=== PATIENT | male | born 1960 | race African-American/Black ===

== ENCOUNTER → 2016-06-24 | Outpatient (CLI) | payer BC ==
[~2016-06-24] MED LIST: AMLO2.5T PO; ASPEC325 PO; ASPI81TA28 PO; CLB200 PO; DOCU-94 PO; DOCU100C31 PO; DVN80 PO; GLUC1CAP33 PO; HYDR-5688 PO; LACT1CAP6 PO; MULT-506 PO; OLME40TA30 PO; OMEG10007 PO; OXYB5TAB74 PO; OXYC7.5T65 PO; POTA8CAP6 PO; SULF800T23 PO
[2016-06-24 09:33] LABS: BASO % 0.6 %; BASO ABS # 0.03 K/uL (0-0.2); COMPLETE YES; EOS % 2.8 %; HEMATOCRIT 45.9 % (42-52); IG% 0.2 %; LYMPH % 30.4 %; LYMPH ABS # 1.65 K/uL (1.2-3.4); MEAN CELL VOLUME 89.3 fL (80-100); MEAN CORPUSCULAR HEMOGLOBIN 29.8 pg (25-34); MEAN CORPUSCULAR HGB CONC 33.3 g/dl (32-36); MEAN PLATELET VOLUME 9.7 fL (7.4-10.4); MONO % 10.5 %; NEUT % 55.5 %; PLATELET COUNT 304 K/uL (130-400); RED BLOOD COUNT 5.14 M/uL (4.7-6.1); WHITE BLOOD COUNT 5.43 K/uL (4.8-10.8)
[2016-06-24 09:42] LABS: ALT/SGPT 29 U/L (12-78); AST/SGOT 17 U/L (15-37); BLOOD UREA NITROGEN 12 mg/dl (7-18); CALCIUM 8.7 mg/dl (8.5-10.1); CARBON DIOXIDE 29 mmol/L (21-32); CHLORIDE 108 mmol/L (98-107); GLUCOSE 107 mg/dl (70-99); POTASSIUM 3.9 mmol/L (3.5-5.1); SODIUM 145 mmol/L (136-145)
[2016-06-24 09:44] LABS: ESTIMATED AVERAGE GLUCOSE 126 mg/dl; HA1C FLAG Normal (Normal)
[2016-06-24 09:54] LABS: ALB/GLOB RATIO 1.1 (0.9-2); ALKALINE PHOSPHATASE 89 U/L (45-117); CHOLESTEROL 166 mg/dl (0-200); CHOLESTEROL/HDL RATIO 2.5; HDL CHOLESTEROL 66 mg/dl; LDL CHOLESTEROL CALCULATED 90 mg/dl; THYROID STIMULATING HORMONE 0.667 uIu/ml (0.300-4.500); TRIGLYCERIDES 52 mg/dl (0-150); VERY LOW DENSITY LIPOPROT CALC 10 mg/dl
== END | disposition home or self-care (01) ==
LOC: C.LAB 07:46
PROVIDERS: ATTEND Internal Medicine
DX: R51 Headache (principal); R73.01 Impaired fasting glucose

== ENCOUNTER → 2016-09-30 | Outpatient (CLI) | payer BC ==
[~2016-09-30] MED LIST changes: +DTR/5 PO; -OXYB5TAB74 PO
== END | disposition home or self-care (01) ==
LOC: C.PATHSPEC 17:05
PROVIDERS: ATTEND Urology
DX: R97.20 Elevated prostate specific antigen [PSA] (principal)

== ENCOUNTER → 2016-10-15 | Outpatient (CLI) | payer BC | END | disposition home or self-care (01) | LOC: C.LABSPEC 10:52 | PROVIDERS: ATTEND Urology | DX: C61 Malignant neoplasm of prostate (principal) ==

== ENCOUNTER 2016-11-26 08:27 | Inpatient (IN) | payer BC ==
[2016-11-04 15:09] VITALS: BMI 24.0
--- NOTE | 2016-11-04 15:39 | PAT Medication Instructions ---
Service Date November 04, 2016. Current Home Medication List Aspirin (Aspirin Ec), 81 MG PO DAILY Fish Oil (New Era-3), 1 CAP PO QDD Glucosamine-Chondroitin (Glucosamine & Chondroitin 500-400 mg), 2 CAP PO QDD Multivitamin (Multivitamin), 1 TAB PO QDD Potassium Chloride (Klor-Con Ext Rel), Unknown Dose PO QDD Valsartan (Diovan), 80 MG PO noon Medication Instructions For Your Scheduled Surgery - Stopped per pt in anticipation of surgery: Aspirin (Aspirin Ec), 81 MG PO DAILY - Hold the following medications 2 weeks prior to surgery: Fish Oil (New Era-3), 1 CAP PO QDD Glucosamine-Chondroitin (Glucosamine & Chondroitin 500-400 mg), 2 CAP PO QDD - May take as usual evening prior to surgery: Multivitamin (Multivitamin), 1 TAB PO QDD Potassium Chloride (Klor-Con Ext Rel), Unknown Dose PO QDD Nothing to eat or drink after midnight (No medications AM of surgery; pt usually takes Valsartan with lunch) If you have any questions please call us at [phone] or [phone] or [phone]
[2016-11-04 16:19] LABS: BASO % 0.2 %; BASO ABS # 0.01 K/uL (0-0.2); COMPLETE YES; EOS % 0.9 %; HEMATOCRIT 45.1 % (42-52); IG% 0.2 %; LYMPH % 18.8 %; LYMPH ABS # 1.23 K/uL (1.2-3.4); MEAN CELL VOLUME 89.7 fL (80-100); MEAN CORPUSCULAR HEMOGLOBIN 29.6 pg (25-34); MEAN PLATELET VOLUME 9.2 fL (7.4-10.4); MONO % 7.9 %; PLATELET COUNT 322 K/uL (130-400); RED BLOOD COUNT 5.03 M/uL (4.7-6.1); WHITE BLOOD COUNT 6.56 K/uL (4.8-10.8)
[2016-11-04 16:19] LABS: URINE APPEARANCE CLEAR (CLEAR); URINE BILIRUBIN NEG (NEG); URINE COLOR YELLOW; URINE NITRITE NEG (NEG); URINE SPECIFIC GRAVITY 1.017 (1.000-1.030); UROBILINOGEN NEG (NEG)
[2016-11-04 16:24] LABS: MANUAL MICROSCOPIC REQUIRED? NO; REVIEW REQ? NO
--- NOTE | 2016-11-04 16:26 | DIAGNOSTIC IMAGING REPORT ---
CHEST PREADMISSION(PA/LAT) CLINICAL HISTORY: Preoperative evaluation. COMPARISON STUDY: Chest radiograph April 24, 2014. FINDINGS: Lung volumes are normal. No consolidation is identified and there is no evidence of pulmonary edema. Cardiomediastinal silhouette is normal. There is no pneumothorax or pleural effusion. IMPRESSION: No acute cardiopulmonary findings. Electronically signed by: Elijah Howe M.D. 11/04/2016 4:25 PM Dictated Date/Time: 11/04/2016 4:24 PM
[2016-11-04 16:36] LABS: BUN/CREATININE RATIO 13.3 (10-20); CALCIUM 8.7 mg/dl (8.5-10.1); POTASSIUM 3.9 mmol/L (3.5-5.1)
[~2016-11-26] VITALS: Ht 175.3 cm; Wt 74.8 kg
[2016-11-26] VITALS (7 sets, daily range): BP systolic 109–143; BP diastolic 65–86; PULSE 59–86; TEMP 36.3–37; O2SAT 94–99; Ht 175.3 cm; Wt 74.8 kg
[~2016-11-26 08:27] MED LIST changes: -ASPEC325 PO; +CEFAZOLIN 1000MG/55 ML D5W IV SCH; -CLB200 PO; +DEXAMETHASONE SOD INJ 4 MG/ML VIAL ONE; -DOCU-94 PO; -DOCU100C31 PO; -DTR/5 PO; +EpHEDrine SULFATE 50MG/5ML SYR ONE; +FENTANYL CITRATE INJ 50 MCG/1 ML 2 ML VIAL ONE; +GLYCOPYRROLATE INJ 0.2 MG/ML VIAL ONE; +HEPARIN SOD 5000 UNIT/0.5 ML CARP SQ SCH; -HYDR-5688 PO; -LACT1CAP6 PO; +LACTATED RINGER'S 1000ML 1,000 ML IV SCH; +LARYING-O-JET KIT (LTA) ONE; +LIDOCAINE HCL 2% 2 ML VIAL (20MG/ML) ONE; +MIDAZOLAM HCL 1 MG/ML 2ML VIAL ONE; +NEOSTIGMINE METHYLSULFATE 5 MG/5 ML SYR ONE; -OLME40TA30 PO; +ONDANSETRON INJ 2 MG/ML 2 ML VIAL ONE; -OXYC7.5T65 PO; +PHENYLEPHRINE 100MCG/ML 5ML SYR ONE; +PROPOFOL IV EMULSION 10 MG/ML 20 ML VIAL IV ONE; +ROCURONIUM BROMIDE 10 MG/ML 5 ML VIAL ONE; +SCOPOLAMINE 1.5 MG TDSY TD SCH; -SULF800T23 PO
[2016-11-26] MEDS ORDERED: LACT1CAP6 PO (09:05)
[2016-11-26] MEDS ORDERED: SCOPOLAMINE 1.5 MG TDSY TD ONE ×2 (09:45→10:00)
[2016-11-26] MEDS ORDERED: NURSING VERBAL MED ORDER ONE (09:45)
[2016-11-26] MEDS ORDERED: MEPERIDINE HCL 25 MG/ML CARP IV PRN (10:00)
[2016-11-26] MEDS ORDERED: ATROPINE SULFATE 0.1 MG/ML 5ML SYR IV PRN (10:00)
[2016-11-26] MEDS ORDERED: LABETALOL HCL IV 5 MG/ML 20ML IV PRN (10:00)
[2016-11-26] MEDS ORDERED: NALOXONE HCL 0.4 MG/1 ML VIAL/CARP IV PRN (10:00)
[2016-11-26] MEDS ORDERED: FLUMAZENIL 0.1 MG/1 ML 10 ML VIAL IV PRN (10:00)
[2016-11-26] MEDS ORDERED: MoRPHine SULFATE 10 MG/ML CARP/VIAL IV PRN (10:00)
[2016-11-26] MEDS ORDERED: EpHEDrine SULFATE INJ 50 MG/ML AMP IV PRN (10:00)
[2016-11-26] MEDS ORDERED: PHENYLEPHRINE 100MCG/ML 5ML SYR IV PRN (10:00)
[2016-11-26] MEDS ORDERED: ONDANSETRON INJ 2 MG/ML 2 ML VIAL IV PRN ×2 (10:00→14:30)
[2016-11-26] MEDS ORDERED: HYDROmorphone INJ 1 MG/ML SYR IV PRN ×2 (10:00→14:30)
--- NOTE | 2016-11-26 10:10 | History & Physical Bridge Note ---
H&P Re-Evaluation Bridge Note: I have examined the patient, reviewed the History & Physical and in the interval since the performance of the History & Physical I have noted the following changes of clinical significance: No changes noted
[2016-11-26] MEDS ORDERED: BUPIVACAINE 0.5 % 5 MG/1 ML MPF 30ML VIAL ONE (10:13)
[2016-11-26] MEDS ORDERED: CEFAZOLIN SOD 1 GM VIAL ONE (11:17)
[2016-11-26] MEDS ORDERED: HYDROmorphone INJ 2 MG/ML SYR/VIAL ONE (11:17)
[2016-11-26] MEDS ORDERED: SURGICEL ABSORB HEMOSTAT 2IN X 14IN TOP ONE (12:23)
[2016-11-26] MEDS ORDERED: FLOSEAL HEMOSTATIC MATRIX 10ML TOP ONE (12:23)
[2016-11-26] MEDS ORDERED: ROCURONIUM BROMIDE 10 MG/ML 5 ML VIAL ONE (13:41)
--- NOTE | 2016-11-26 14:25 | [facility] Post Operative Brief Note ---
Immediate Operative Summary Operative Date Nov 26, 2016. Pre-Operative Diagnosis cT1c [place] 3+4 Prostate cancer Post-Operative Diagnosis cT1c [place] 3+4 Prostate cancer and right testicular mass Procedure(s) Performed Robotic assisted laparoscopic radical retropubic prostatectomy and insertion of suprapubic tube Surgeon Dr. Raheem Hernadez MD Tapping Machine Operator Automatic Surgeon(s) Veronica Burgos, RN, CUSTOMS COMPLIANCE SPECIALIST Estimated Blood Loss 300 ml Findings Firm right testis suspicious for mass on exam under anesthesia, copious periprostatic inflammation within the confines of a tight pelvis, watertight anastomosis and good SPT location, no evidence of residual prostate tissue at inflamed bladder neck Specimens Periprostatic Fat Prostate + seminal vesicles (R SV separate) C. Bladder neck margin Drains 18 fr silicone klein 10 cc H2O, 16 fr Rutner SPT with 5 cc, #10 LELE bulb sxn Anesthesia GAET + local Complication(s) None Disposition Recovery Room / PACU
[2016-11-26] MEDS ORDERED: SULF800T23 PO (14:29)
[2016-11-26] MEDS ORDERED: DOCU-94 PO (14:29)
[2016-11-26] MEDS ORDERED: OXYC7.5T65 PO (14:29)
[2016-11-26] MEDS ORDERED: DTR/5 PO (14:29)
[2016-11-26] MEDS ORDERED: KETOROLAC TROMETHAMINE 30 MG/ML VIAL IV. PRN (14:30)
[2016-11-26] MEDS ORDERED: OXYCODONE/ACETAMINOPHEN 7.5-325 TAB PO PRN (14:30)
[2016-11-26] MEDS ORDERED: OXYBUTYNIN CHLORIDE 5 MG TAB PO PRN (14:30)
--- NOTE | 2016-11-26 14:34 | Anesthesiology Progress Note ---
Anesthesia Post Op Note Date & Time Nov 26, 2016 at 14:33 Vital Signs Pain Intensity: 0 Vital Signs Past 12 Hours Date Time Temp Pulse Resp B/P (MAP) Pulse Ox O2 Delivery O2 Flow Rate FiO2 11/26/16 09:13 37.0 63 18 135/86 98 Room Air Notes Mental Status: alert / awake / arousable, participated in evaluation Pt Amnestic to Procedure: Yes Nausea / Vomiting: adequately controlled Pain: adequately controlled Airway Patency, RR, SpO2: stable & adequate BP & HR: stable & adequate Hydration State: stable & adequate Anesthetic Complications: no major complications apparent The patient did well. He is awake and comfortable in the PACU. His vitals are stable.
--- NOTE | 2016-11-26 14:36 | Discharge Instructions ---
Discharge Instructions Date of Service Nov 26, 2016. Admission Reason for Admission: Prostate Cancer Discharge Discharge Diagnosis / Problem: Prostate Cancer Discharge Goals Goal(s): Decrease discomfort, Improve disease control, Diagnostic testing, Therapeutic intervention Activity Recommendations Activity Limitations: per Instructions/Follow-up section Shower/Bathe: tomorrow 1. Do not lift >15lbs x 6 weeks. 2. No heavy exercise x 6 weeks. You may engage in light activity such as walking and stairs as tolerated. 3. No sexual intercourse until cleared by Dr. Hernadez. 4. [address] not drive x [address] while taking narcotics. 5. Finish all of the antibiotic you have been prescribed. 6. Immediately call our office at [phone] if your catheter is removed for any reason. 7. Follow-up as scheduled. Please call our office at [phone] if you need to reschedule for any reason. 8. You may resume taking your Aspirin in 2 days. 9. You may resume taking your fish oil in 10 days. . Current Hospital Diet Hospital Diet(s): Clear Liquid Diet Discharge Diet Recommended Diet: Regular Diet Procedures Procedures Performed: Robotic assisted laparoscopic radical retropubic prostatectomy and insertion of suprapubic tube Pending Studies Studies pending at discharge: yes List of pending studies: prostate pathology Medical Emergencies . Who to Call and When: Medical Emergencies: If at any time you feel your situation is an emergency, please call 911 immediately. . Non-Emergent Contact Non-Emergency issues call your: Urologist Call Non-Emergent contact if: temperature is above 101.5, your pain is not controlled, your pain is worsening, your pain is unusual for you, your pain is concerning you, you have any medication questions . . "Provider Documentation" section prepared by Veronica Burgos. . VTE Core Measure Inpt VTE Proph given/why not?: Unfractionated heparin SQ, SCD's [place] Drug Monitoring Program Search Results: patient reviewed within database, no issues identified
[2016-11-26 14:41] LABS: HEMATOCRIT 41.8 % (42-52); MEAN CELL VOLUME 90.7 fL (80-100); MEAN CORPUSCULAR HEMOGLOBIN 28.9 pg (25-34); MEAN PLATELET VOLUME 8.8 fL (7.4-10.4); PLATELET COUNT 277 K/uL (130-400); RED BLOOD COUNT 4.61 M/uL (4.7-6.1); WHITE BLOOD COUNT 9.58 K/uL (4.8-10.8)
[2016-11-26 14:44] LABS: MEAN CORPUSCULAR HGB CONC 31.8 g/dl (32-36)
[2016-11-26 15:05] LABS: BUN/CREATININE RATIO 10.6 (10-20); CALCIUM 8.1 mg/dl (8.5-10.1); CREATININE 1.1 mg/dl (0.60-1.40); POTASSIUM 3.9 mmol/L (3.5-5.1)
--- NOTE | 2016-11-26 16:01 | DIAGNOSTIC IMAGING REPORT ---
TESTICULAR ULTRASOUND HISTORY: Testicular mass right testicular mass COMPARISON: None. FINDINGS: Right testis: Right testis has been surgically removed. There is a right testicular implant. Left testis: Maximum dimension 3.2 cm. Normal vascular flow IMPRESSION: 1. Findings of a prior right testicular resection. 2. Normal left testis. 3. Right testicular implant Electronically signed by: Bandar Castrejon M.D. 11/26/2016 4:00 PM Dictated Date/Time: 11/26/2016 3:57 PM
[2016-11-26] MEDS: CHECK SCOPOLAMINE PATCH PLACEMENT SCH ×2 (16:09→23:18)
[2016-11-26] MEDS: LACTATED RINGER'S 1000ML 1,000 ML IV SCH ×2 (17:16→23:20)
[2016-11-26] MEDS: CEFAZOLIN IV 2,000 MG in DEXTROSE 5% 50ML 50 ML IV SCH (18:42)
[2016-11-26] MEDS: ACETAMINOPHEN 500 MG TAB PO SCH ×2 (18:43→23:19)
[2016-11-26] MEDS: HEPARIN SOD 5000 UNIT/0.5 ML CARP SQ SCH (18:47)
[2016-11-26] MEDS: DOCUSATE SODIUM 100 MG CAP PO SCH (20:55)
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
[2016-11-27] MEDS: CEFAZOLIN IV 2,000 MG in DEXTROSE 5% 50ML 50 ML IV SCH ×2 (01:56→10:12)
[2016-11-27 03:13] VITALS: BP 115/68; PULSE 65; TEMP 36.7; O2SAT 97
[2016-11-27] MEDS: ACETAMINOPHEN 500 MG TAB PO SCH ×2 (06:24→11:39)
[2016-11-27] MEDS: HEPARIN SOD 5000 UNIT/0.5 ML CARP SQ SCH (06:25)
[2016-11-27 07:54] VITALS: BP 123/77; PULSE 62; TEMP 36.7; O2SAT 97
[2016-11-27] MEDS ORDERED: VALSARTAN 80 MG TAB PO SCH (08:00)
[2016-11-27 08:21] LABS: BASO % 0.1 %; BASO ABS # 0.01 K/uL (0-0.2); COMPLETE YES; EOS % 0.1 %; HEMATOCRIT 39.2 % (42-52); IG% 0.1 %; LYMPH % 17.3 %; LYMPH ABS # 1.46 K/uL (1.2-3.4); MEAN CELL VOLUME 91.4 fL (80-100); MEAN CORPUSCULAR HEMOGLOBIN 29.1 pg (25-34); MEAN CORPUSCULAR HGB CONC 31.9 g/dl (32-36); MEAN PLATELET VOLUME 9.4 fL (7.4-10.4); MONO % 10.2 %; NEUT % 72.2 %; PLATELET COUNT 295 K/uL (130-400); RED BLOOD COUNT 4.29 M/uL (4.7-6.1); WHITE BLOOD COUNT 8.42 K/uL (4.8-10.8)
[2016-11-27] MEDS: LACTATED RINGER'S 1000ML 1,000 ML IV SCH (08:25)
[2016-11-27] MEDS: CHECK SCOPOLAMINE PATCH PLACEMENT SCH (08:26)
[2016-11-27] MEDS: DOCUSATE SODIUM 100 MG CAP PO SCH (08:27)
[2016-11-27 08:29] VITALS: BP 115/71; PULSE 66
--- NOTE | 2016-11-27 08:30 | Anesthesiology Progress Note ---
Anesthesia Post Op Note Date & Time Nov 27, 2016 at 08:30 Vital Signs Pain Intensity: 0.0 Vital Signs Past 12 Hours Date Time Temp Pulse Resp B/P (MAP) Pulse Ox O2 Delivery O2 Flow Rate FiO2 11/27/16 08:29 66 115/71 (86) 11/27/16 07:54 36.7 62 17 123/77 (92) 97 Room Air 11/27/16 03:13 36.7 65 16 115/68 (84) 97 Room Air 11/26/16 23:20 Room Air 11/26/16 22:49 36.5 71 16 109/65 (80) 96 Room Air Notes Mental Status: alert / awake / arousable, participated in evaluation Pt Amnestic to Procedure: Yes Nausea / Vomiting: adequately controlled Pain: adequately controlled Airway Patency, RR, SpO2: stable & adequate BP & HR: stable & adequate Hydration State: stable & adequate Anesthetic Complications: no major complications apparent
[2016-11-27] MEDS ORDERED: POTASSIUM CHLORIDE 10 MEQ TABCR PO SCH (09:00)
[2016-11-27] MEDS ORDERED: AMLODIPINE BESYLATE 5 MG TAB PO SCH (09:00)
[2016-11-27 09:02] LABS: CALCIUM 8.4 mg/dl (8.5-10.1)
[2016-11-27 09:03] LABS: BUN/CREATININE RATIO 8.3 (10-20); POTASSIUM 3.9 mmol/L (3.5-5.1)
--- NOTE | 2016-11-27 10:38 | Progress Note ---
Subjective Date of Service: Nov 27, 2016. Subjective Pt evaluation today including: conversation w/ patient, physical exam, chart review, lab review, review of inpatient medication list Pain: Gassy discomfort, minimal incisional pain, klein discomfort PO Intake: Anai soft mechanical, no emesis Voiding: klein catheter in place (clear urine via klein, minimal clear drainage via SPT) 55 yo male POD#1 s/p RALRP, SPT placement, doing well. He is anai soft mechanical diet, ambulatory in hallways, + BM this AM, doing well. No f/c/n/v. Intraop findings reviewed, labwork noted. Most UOP is noted via klein but SPT appears to be draining correctly, acceptable LELE output. Review of Systems Constitutional: No fever, No chills Eyes: No worsening of vision ENT: No hearing loss, No unusual epistaxis Respiratory: No wheezing, No shortness of breath Cardiac: No chest pain Abdomen: + pain, No nausea, No vomiting Musculoskeletal: No muscle pain Male : No hematuria Neurologic: No memory loss, No paralysis, No weakness, No numbness/tingling Psychiatric: No depression symptoms Endo: No excessive thirst, No excessive urination Skin: No new/changing skin lesions Objective Vital Signs Date Time Temp Pulse Resp B/P (MAP) Pulse Ox O2 Delivery O2 Flow Rate FiO2 11/27/16 08:29 66 115/71 (86) 11/27/16 07:54 36.7 62 17 123/77 (92) 97 Room Air 11/27/16 07:30 Room Air 11/27/16 03:13 36.7 65 16 115/68 (84) 97 Room Air 11/26/16 23:20 Room Air 11/26/16 22:49 36.5 71 16 109/65 (80) 96 Room Air 11/26/16 19:00 36.4 86 18 121/67 (85) 98 Nasal Cannula 2.0 11/26/16 17:50 36.4 66 16 118/78 (91) 99 Nasal Cannula 2.0 11/26/16 16:50 36.5 59 16 132/80 (97) 99 Nasal Cannula 2.0 11/26/16 16:20 36.3 64 18 143/84 (103) 98 Nasal Cannula 2.0 11/26/16 16:15 Nasal Cannula 2.0 11/26/16 15:50 94 Nasal Cannula 2.0 11/26/16 15:50 36.5 75 18 126/72 (90) 94 Nasal Cannula 2.0 11/26/16 14:59 36.4 11/26/16 14:58 65 21 11/26/16 14:58 65 21 99 11/26/16 14:56 117/73 11/26/16 14:53 66 20 99 11/26/16 14:53 65 20 11/26/16 14:52 59 16 99 11/26/16 14:52 59 16 11/26/16 14:51 118/65 11/26/16 14:47 68 17 11/26/16 14:47 68 17 99 11/26/16 14:46 115/70 11/26/16 14:42 62 19 11/26/16 14:42 61 19 100 11/26/16 14:41 72 22 128/59 100 11/26/16 14:41 67 22 11/26/16 14:36 72 17 11/26/16 14:36 72 17 125/73 100 11/26/16 14:35 72 16 11/26/16 14:35 73 16 100 11/26/16 14:31 120/67 11/26/16 14:30 73 16 100 11/26/16 14:30 74 16 11/26/16 14:26 133/75 11/26/16 14:25 79 14 100 11/26/16 14:25 79 14 11/26/16 14:21 120/72 11/26/16 14:20 36.4 81 19 120/72 100 Mask 10 11/26/16 14:20 92 21 11/26/16 14:20 92 21 100 Physical Exam General Appearance: WD/WN, no apparent distress Eyes: normal inspection ENT: normal ENT inspection Neck: supple, no adenopathy Respiratory/Chest: no respiratory distress, no accessory muscle use Cardiovascular: no JVD Abdomen: non tender, soft, + pertinent finding (ND, inc c/d/i, minimal drainage from supraumbilical incision) Extremities: non-tender Neurologic/Psychiatric: alert, oriented x 3 Skin: normal color Laboratory Results Last 24 Hours Test 11/26/16 14:34 11/26/16 16:50 11/27/16 07:21 White Blood Count 9.58 K/uL 8.42 K/uL Red Blood Count 4.61 M/uL 4.29 M/uL Hemoglobin 13.3 g/dL 12.5 g/dL Hematocrit 41.8 % 39.2 % Mean Corpuscular Volume 90.7 fL 91.4 fL Mean Corpuscular Hemoglobin 28.9 pg 29.1 pg Mean Corpuscular Hemoglobin Concent 31.8 g/dl 31.9 g/dl RDW Standard Deviation 41.4 fL 42.2 fL RDW Coefficient of Variation 12.4 % 12.6 % Platelet Count 277 K/uL 295 K/uL Mean Platelet Volume 8.8 fL 9.4 fL Sodium Level 143 mmol/L 143 mmol/L Potassium Level 3.9 mmol/L 3.9 mmol/L Chloride Level 109 mmol/L 107 mmol/L Carbon Dioxide Level 27 mmol/L 29 mmol/L Anion Gap 7.0 mmol/L 7.0 mmol/L Blood Urea Nitrogen 12 mg/dl 8 mg/dl Creatinine 1.10 mg/dl 1.00 mg/dl Est Creatinine Clear Calc Drug Dose 75.0 ml/min 82.5 ml/min Estimated GFR () 86.5 97.1 Estimated GFR (Non- 74.6 83.8 BUN/Creatinine Ratio 10.6 8.3 Random Glucose 138 mg/dl 100 mg/dl Calcium Level 8.1 mg/dl 8.4 mg/dl Prothrombin Time 11.0 SECONDS Prothromb Time International Ratio 1.0 Neutrophils (%) (Auto) 72.2 % Lymphocytes (%) (Auto) 17.3 % Monocytes (%) (Auto) 10.2 % Eosinophils (%) (Auto) 0.1 % Basophils (%) (Auto) 0.1 % Neutrophils # (Auto) 6.07 K/uL Lymphocytes # (Auto) 1.46 K/uL Monocytes # (Auto) 0.86 K/uL Eosinophils # (Auto) 0.01 K/uL Basophils # (Auto) 0.01 K/uL Immature Granulocyte % (Auto) 0.1 % Immature Granulocyte # (Auto) 0.01 K/uL Assessment and Plan A/P 55 yo male POD#1 s/p RALRP, SPT placement. Doing well Advance diet and activity Patient prefers SPT > klein - will DC klein, DC home with SPT in place DC instructions reviewed, Rx in chart. Outpatient appointments for path and TOV in place DC home after lunch Discharge planning: home
[2016-11-27 11:09] VITALS: BP 115/71; PULSE 66; TEMP 36.7; O2SAT 97
--- NOTE | 2016-12-02 14:38 | DISCHARGE SUMMARY ---
PREOPERATIVE DIAGNOSIS: Clinical T1c, [place] 4+3 adenocarcinoma of the prostate. DISCHARGE DIAGNOSIS: Same. PROCEDURES OVER THE COURSE OF ADMISSION: Include a robot-assisted laparoscopic radical retropubic prostatectomy with suprapubic tube placement on the 11/26/2016. COMPLICATIONS: None. ADMITTING ATTENDING: Dr. Raheem Hernadez. BRIEF HISTORY: Mr. Dooley is a pleasant 55-year-old male who has been seen as an outpatient for an elevated PSA discovered to have adenocarcinoma of the prostate with [place] 4 elements on biopsy. Please see H&P for further details. After discussion of risks and benefits of various forms of management, he has decided upon robotic prostatectomy to manage his disease. He is being admitted for this purpose. Intravenous antibiotics provided for preoperative coverage as well as SCDs and subQ heparin for DVT prophylaxis. HOSPITAL COURSE: The patient was admitted after uncomplicated robotic prostatectomy as noted. Please see H&P for further details. Scrotal ultrasound for an indurated testis demonstrated a testicular prosthesis in the postoperative period. A suprapubic tube was placed intraoperatively. Over the course of followed diet and activity were advanced. By postoperative day #1, the patient was tolerating regular diet, ambulatory in the hallways, comfortable on oral pain medication. LELE drain was removed as well as the Mcke[place] catheter. SPT left intact as previously planned. The patient was considered stable for discharge home at this time. Please see progress notes for further details. DISCHARGE INSTRUCTIONS: Please see discharge instruction sheet for further details. Prescriptions provided for antibiotic coverage as well as a stool softener. The patient is instructed to contact our service should he note any fevers, chills, nausea, vomiting or other significant difficulties in the postoperative period. Postoperative appointments are confirmed including trial of void and pathology discussion. MONICA
[2016-12-05] MEDS ORDERED: DTR/5 PO (00:33)
== END 2016-11-27 14:44 | disposition home or self-care (01) | DRG 708 ==
LOC: C.ACU 08:27 → C.MSN 08:45 → ENRESERV 15:11
PROVIDERS: ADMIT Urology; ATTEND Urology
PROC: 0T9B30Z Drainage of Bladder with Drainage Device, Percutaneous Approach (ICD-10-PCS; principal; 2016-11-26 10:00)
PROC: 0VT04ZZ Resection of Prostate, Percutaneous Endoscopic Approach (ICD-10-PCS; principal; 2016-11-26 10:00)
PROC: 8E0W4CZ Robotic Assisted Procedure of Trunk Region, Percutaneous Endoscopic Approach (ICD-10-PCS; principal; 2016-11-26 10:00)
PROC: 0VT34ZZ Resection of Bilateral Seminal Vesicles, Percutaneous Endoscopic Approach (ICD-10-PCS; principal; 2016-11-26 10:00)
DX: C61 Malignant neoplasm of prostate (principal); I10 Essential (primary) hypertension; M19.90 Unspecified osteoarthritis, unspecified site; Z96.649 Presence of unspecified artificial hip joint; Z79.82 Long term (current) use of aspirin; Z79.899 Other long term (current) drug therapy

== ENCOUNTER 2016-12-04 23:53 | Emergency (ER) | payer BC ==
[~2016-12-04] VITALS: Ht 175.3 cm; Wt 65.0 kg
[~2016-12-04 23:53] MED LIST changes: -ASPI81TA28 PO; -CEFAZOLIN 1000MG/55 ML D5W IV SCH; -DEXAMETHASONE SOD INJ 4 MG/ML VIAL ONE; +DOCU-94 PO; -EpHEDrine SULFATE 50MG/5ML SYR ONE; -FENTANYL CITRATE INJ 50 MCG/1 ML 2 ML VIAL ONE; -GLYCOPYRROLATE INJ 0.2 MG/ML VIAL ONE; -HEPARIN SOD 5000 UNIT/0.5 ML CARP SQ SCH; +LACT1CAP6 PO; -LACTATED RINGER'S 1000ML 1,000 ML IV SCH; -LARYING-O-JET KIT (LTA) ONE; -LIDOCAINE HCL 2% 2 ML VIAL (20MG/ML) ONE; -MIDAZOLAM HCL 1 MG/ML 2ML VIAL ONE; -NEOSTIGMINE METHYLSULFATE 5 MG/5 ML SYR ONE; -OMEG10007 PO; -ONDANSETRON INJ 2 MG/ML 2 ML VIAL ONE; +OXYB5TAB74 PO; +OXYC7.5T65 PO; -PHENYLEPHRINE 100MCG/ML 5ML SYR ONE; -PROPOFOL IV EMULSION 10 MG/ML 20 ML VIAL IV ONE; -ROCURONIUM BROMIDE 10 MG/ML 5 ML VIAL ONE; -SCOPOLAMINE 1.5 MG TDSY TD SCH; +SULF800T23 PO
[2016-12-04 23:56] VITALS: TEMP 36.9; Ht 175.3 cm; Wt 65.0 kg
[2016-12-05] MEDS ORDERED: OXYB5TAB74 PO (00:33)
[2016-12-05] MEDS ORDERED: DOCU100C31 PO (00:34)
[2016-12-05] MEDS ORDERED: SULF800T23 PO (00:35)
--- NOTE | 2016-12-05 00:41 | EMERGENCY ROOM VISIT NOTE ---
History Report prepared by Marianna: Paul Suarez Under the Supervision of: Dr. Yola Aleman M.D. First contact with patient: 00:03 Chief Complaint: CATHETER REPLACEMENT Stated Complaint: BLADDER CATHETER CLOGGED? 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 The patient had a suprapubic catheter placed 9 days ago s/p prostatectomy. The surgery was performed by Dr. Hernadez. 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 He has not noticed any leaking around the catheter. He denies any recent fevers, diarrhea, or leg swelling. He has been eating and drinking okay. The catheter is scheduled to be removed in two days. 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 A total of 10 systems reviewed and were otherwise negative. Past Medical & Surgical Medical Problems: (1) Prostate cancer (2) Testicular mass Family History No pertinent family history Social History Smoking Status: Never Smoker Drug Use: none Marital Status: single Occupation Status: employed Current/Historical Medications Scheduled Amlodipine (Norvasc), 2.5 MG PO DAILY Glucosamine-Chondroitin (Glucosamine & Chondroitin 500-400 mg), 2 CAP PO QDD Lactobacillus (Probiotic), 1 CAP PO DAILY Multivitamin (Multivitamin), 1 TAB PO QDD Potassium Chloride (Klor-Con Ext Rel), Unknown Dose PO QDD Sulfa/Trimethoprim (Bactrim Ds 800MG/160MG), 1 TAB PO BID Valsartan (Diovan), 80 MG PO noon Scheduled PRN Docusate Sodium (Docusate Sodium), 100 MG PO BID PRN for Constipation Oxybutynin Chloride (Ditropan), 5 MG PO TID PRN for SPASMS Oxycodone/Acetaminophen 7.5MG/325MG (Percocet 7.5MG/325MG), 1 TAB PO Q4 PRN for Pain Allergies Coded Allergies: No Known Allergies (Verified , NKA, 11/04/16) Physical Exam Vital Signs Date Time Temp Pulse Resp B/P (MAP) Pulse Ox O2 Delivery O2 Flow Rate FiO2 12/05/16 01:31 81 18 129/77 94 12/04/16 23:56 36.9 92 18 136/79 95 Room Air Physical Exam Vital signs reviewed. General: Well-appearing male, in no significant distress. HEENT: No scleral icterus, PERRLA, neck supple. Atraumatic. Cardiovascular: Regular rate and rhythm, no extra sounds. Pulmonary: Clear to auscultation bilaterally, normal work of breathing. Abdomen: Soft, nontender, nondistended, positive bowel sounds. Suprapubic catheter with chunky precipitate in the catheter, minimal fluid in catheter bag. Musculoskeletal: Atraumatic, no peripheral edema. Neurologic: Patient awake alert and oriented x 3. Skin: Warm, dry, no rash Medical Decision & Procedures ED Course 0031: Past medical records reviewed. The patient was evaluated in room A11b. A complete history and physical examination was performed. 0100: Nursing staff flushed the catheter multiple times. 0120: Discussed the discharge instructions with the patient. She verbalized understanding. The patient is ready for discharge. Medical Decision Differential Diagnosis: Blocked suprapubic catheter, dislodged catheter, surgical complication. Medication Reconciliation: I attest that I have personally reviewed the patient' s current medication list. Blood Pressure Screening: Patient was found to have normal blood pressure on screening and does not require follow-up. This patient was evaluated and appeared to be in no significant distress. Vital signs reviewed. General: Well-appearing 3-month-old male. HEENT: No scleral icterus, PERRLA, neck supple, no lymphadenopathy, moist neck his membranes, fontanelles are flat. Cardiovascular: Regular rate and rhythm, no extra sounds. Pulmonary: Clear to auscultation bilaterally, normal work of breathing. Abdomen: Soft, nontender, nondistended, positive bowel sounds. The patient is nursing. : The patient has normal male genitalia, two testicles palpated, circumcised penis. Musculoskeletal: Upper extremities atraumatic. Neurologic: Patient awake alert and playful, full strength in all 4 extremities. Physical examination is fairly unrevealing. Suprapubic catheter appears to have some thick precipitate. He was easily irrigated by the nursing staff. Patient's catheter began to drain. The patient is scheduled to follow- up with urology Wednesday, today being Wednesday. This time I do not think there is need for a change in medication. Scratch that he will return to the ER for worsening of symptoms or any medical concerns. Impression Primary Impression: Complication of catheter Scribe Attestation The scribe's documentation has been prepared under my direction and personally reviewed by me in its entirety. I confirm that the note above accurately reflects all work, treatment, procedures, and medical decision making performed by me. Departure Information Dispostion Home / Self-Care Referrals No Doctor, Assigned (PCP) Forms HOME CARE DOCUMENTATION FORM, IMPORTANT VISIT INFORMATION Patient Instructions [facility] Additional Instructions Diagnosis: Blocked suprapubic catheter Follow up with urology this week as scheduled. Return to the ED for worsening of symptoms or any medical concerns.
[2016-12-05 01:31] VITALS: BP 129/77; PULSE 81; O2SAT 94
== END 2016-12-05 01:31 | disposition home or self-care (01) ==
LOC: C.EDB 23:54 → C.EDA 12-05 01:31
DX: T83.098A Other mechanical complication of other urinary catheter, initial encounter (principal); Y84.6 Urinary catheterization as the cause of abnormal reaction of the patient, or of later complication, without mention of misadventure at the time of the procedure; Z98.890 Other specified postprocedural states; Z90.79 Acquired absence of other genital organ(s); Z85.46 Personal history of malignant neoplasm of prostate; Z79.899 Other long term (current) drug therapy